=== PATIENT | female | born 1930 | race Caucasian/White ===

== ENCOUNTER 2017-05-20 19:57 | Emergency (ER) | payer MEDICARE, OTHER ==
[~2017-05-20] VITALS: Ht 162.6 cm; Wt 95.0 kg
[2017-05-20] MEDS ORDERED: fentaNYL 100 MCG/2 ML INJECTION (J3010) IV ONE (21:15)
--- NOTE | 2017-05-20 21:34 | REP ---
Clinical: Fall on anticoagulation therapy. Findings: Age-related atrophy and microvascular ischemic changes are appreciated. The ventricles and sulci are symmetric. Choi-white differentiation is maintained. There is no evidence for acute intracranial hemorrhage, mass/mass effect, pathology or infarction. No extra-axial fluid collection. Calvarium is intact. Paranasal sinuses and mastoid air cells are clear. Impression: Age related atrophy and microvascular ischemic changes. No acute intracranial hemorrhage, infarction, or mass/mass effect. Signed by Charanjit Max MD 05/20/2017 09:26 P
[2017-05-20 21:42] LABS: BASO % 0.4 % (0.0-1.0); EOS # 0.2 K/mm3 (0.0-0.50); EOS % 2.2 % (0.0-3.0); LARGE UNSTAINED CELL # 0.1 K/mm3 (0.0-0.4); LARGE UNSTAINED CELL % 1.1 % (0.0-4.0); LYMPH # 1.2 K/mm3 (1.5-4.5); LYMPH % 9.8 % (24.0-44.0); MEAN CORPUSCULAR HEMOGLOBIN 32.6 pg (27.0-33.0); MEAN CORPUSCULAR HGB CONC 32.6 g/dl (32.0-36.5); MONO # 0.6 K/mm3 (0.0-0.8); MONO % 5.4 % (0.0-5.0); NEUTROPHILS # 9.2 K/mm3 (1.8-7.7); NEUTROPHILS % 81.1 % (36.0-66.0); PLATELET COUNT, AUTOMATED 195 k/mm3 (150-450); WHITE BLOOD COUNT 11.4 K/mm3 (4.0-10.0)
[2017-05-20 21:50] LABS: INR 1.16
[2017-05-20 22:03] LABS: ANION GAP 6 MEQ/L (8-16); BLOOD UREA NITROGEN 19 MG/DL (7-18); CALCIUM LEVEL 8.8 MG/DL (8.8-10.2); CARBON DIOXIDE LEVEL 31 MEQ/L (21-32); CHLORIDE LEVEL 104 MEQ/L (98-107); CREATININE FOR GFR 0.63 MG/DL (0.55-1.02); GLOMERULAR FILTRATION RATE > 60.0 (>32); GLUCOSE, FASTING 147 MG/DL (83-110); POTASSIUM SERUM 4.1 MEQ/L (3.5-5.1); SODIUM LEVEL 141 MEQ/L (136-145)
[2017-05-20] MEDS ORDERED: ACET50TAOT PO (23:14)
[2017-05-20] MEDS ORDERED: AMLO10TA2 PO (23:14)
[2017-05-20] MEDS ORDERED: ASPI81TA85 PO (23:14)
[2017-05-20] MEDS ORDERED: ELIQ2.5T PO (23:19)
[2017-05-20] MEDS ORDERED: POTA20TA FT (23:19)
[2017-05-20] MEDS ORDERED: FURO20TA2 PO (23:19)
[2017-05-20] MEDS ORDERED: METO1TAB7 PO (23:19)
[2017-05-20] MEDS ORDERED: LIPI20TA PO (23:19)
[2017-05-21] MEDS ORDERED: MORPHINE 2 MG/ML 1ML SYRINGE IV ONE (00:30)
[2017-05-21 00:36] VITALS: BP 121/66
--- NOTE | 2017-05-21 06:40 | ECGEPIP ---
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
--- NOTE | 2017-05-21 09:24 | REP ---
Clinical: Trauma. Technique: AP and frog lateral views of the right hip. Findings: The patient is status post right hip replacement. No acute fracture dislocation. No subcutaneous emphysema. No significant progressive arthritic changes. Impression: No acute fracture dislocation. Signed by Charanjit Max MD 05/21/2017 09:15 A
--- NOTE | 2017-05-21 09:26 | REP ---
Clinical: Trauma. Technique: AP, lateral, bilateral oblique views of the right elbow. Findings: Moderate to advanced age-related arthritic degenerative changes are appreciated and limit evaluation for subtle injury. No obvious acute fracture or dislocation is appreciated. No definite effusion. Impression: Limited examination due to underlying osteopenia and arthritic degenerative changes. No obvious acute fracture or dislocation. If the patient remains symptomatic consider reevaluation or CT and 5-7 days. Signed by Charanjit Max MD 05/21/2017 09:17 A
--- NOTE | 2017-05-21 09:28 | REP ---
Clinical: Trauma. Technique: AP, lateral, bilateral oblique views of the right knee. Findings: Evidence for prior total knee arthroplasty. There is an acute, foreshortened comminuted and displaced fracture through the distal femoral metadiaphysis. Overlying soft tissue swelling noted. Impression: Comminuted, foreshortened and displaced fracture through the distal femoral metadiaphysis. Signed by Charanjit Max MD 05/21/2017 09:19 A
--- NOTE | 2017-05-21 09:31 | REP ---
Clinical: Trauma. Technique: AP, lateral, bilateral oblique views of the right wrist . Findings: Osteopenia and Moderate to advanced age-related arthritic degenerative changes are appreciated and limit evaluation for subtle injury. No obvious acute fracture or dislocation is appreciated. No definite effusion. Impression: Limited examination due to underlying osteopenia and arthritic degenerative changes. No obvious acute fracture or dislocation. If the patient remains symptomatic consider reevaluation or CT and 5-7 days. Signed by Charanjit Max MD 05/21/2017 09:23 A
--- NOTE | 2017-05-22 14:15 | REP ---
Clinical: Trauma. Technique: Internal rotation, external rotation, and Y view of the right shoulder. Findings: Osteopenia and advanced arthritic degenerative changes are appreciated and limit evaluation for subtle injury. No obvious acute fracture or dislocation is appreciated. No definite effusion. Impression: Limited examination due to underlying osteopenia and arthritic degenerative changes. No obvious acute fracture or dislocation. If the patient remains symptomatic consider reevaluation or CT and 5-7 days. Signed by Charanjit Max MD 05/22/2017 02:06 P
--- NOTE | 2017-05-22 14:15 | REP ---
Clinical: Shortness of breath. Trauma . Comparison: 02/28/2011 . Findings: The mediastinum and cardiac silhouette are stable and within normal limits for portable technique. The lung aguirre are clear without acute consolidation, effusion, or pneumothorax. Chronic scoliosis noted. Impression: No acute cardiopulmonary process appreciated. Signed by Charanjit Max MD 05/22/2017 02:06 P
== END 2017-05-21 00:54 | disposition short-term general hospital (02) ==
LOC: EDBD 19:57 → M ED 19:57 → EDSEX 19:57 → M ED 05-21 00:54
DX: S72.491A Other fracture of lower end of right femur, initial encounter for closed fracture (principal); I48.91 Unspecified atrial fibrillation; I10 Essential (primary) hypertension; Z95.0 Presence of cardiac pacemaker; Z79.01 Long term (current) use of anticoagulants; Z96.651 Presence of right artificial knee joint; Z96.641 Presence of right artificial hip joint; W01.198A Fall on same level from slipping, tripping and stumbling with subsequent striking against other object, initial encounter; Y92.89 Other specified places as the place of occurrence of the external cause; Y93.01 Activity, walking, marching and hiking; Y99.9 Unspecified external cause status
CPT/HCPCS: 36415; 70450; 71010; 73030; 73080; 73110; 73502; 73564; 80048; 85025; 85610; 93005; 96374; 96375; 99285; J3010